=== PATIENT | female | born 1950 | race Caucasian/White ===

== ENCOUNTER 2017-12-05 09:46 | Emergency (ER) | payer BC, OTHER ==
--- NOTE | 2017-12-05 11:02 | EDPHY ---
H & P Time Seen by Provider: 12/05/17 11:01 HPI/ROS: Chief complaint. Abdominal pain HPI. 67-year-old female presents emergency department with abdominal pain since last night. It comes and goes. It seems to be worse with lying down and better with standing. It has mid abdominal and she describes it as discomfort. No radiation to back. It is on both sides. No nausea vomiting or diarrhea. No constipation. No urinary symptoms. No previous abdominal surgeries other than a ventral hernia repair many years ago. No fever. No chest discomfort no shortness of breath. ROS Constitutional. no fever/chills, no weakness Eyes. no problems with vision ENT. no sore throat, no nasal drainage Cardiovascular. no chest pain Respiratory. no shortness of breath, no cough Abdominal. Mid abdominal pain without nausea vomiting or diarrhea . no problems urinating MS. no calf pain/swelling, no neck/back pain, no joint pain Skin. no rash Lymph. no swollen glands Neuro. 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 Sleep apnea and pre diabetes Social History: , nonsmoker, no alcohol Smoking Status: Never smoked Physical Exam: General Appearance: Alert pleasant well-developed female mild distress vital signs are stable Eyes: Pupils equal and round no pallor or injection. ENT, Mouth: Mucous membranes are moist. Respiratory: There are no retractions, lungs are clear to auscultation. Cardiovascular: Regular rate and rhythm. Gastrointestinal: Abdomen is soft and nontender, no masses, bowel sounds normal. She has no tenderness now. Neurological: Awake and alert, sensory and motor exams grossly normal. Skin: Warm and dry, no rashes. Musculoskeletal: Neck is supple nontender. Extremities symmetrical, full range of motion. Psychiatric: Patient is oriented X 3, there is no agitation. Constitutional: Initial Vital Signs Temperature (C) 36.6 C 12/05/17 09:49 Heart Rate 80 12/05/17 09:49 Respiratory Rate 18 12/05/17 09:49 Blood Pressure 107/60 12/05/17 09:49 O2 Sat (%) 97 12/05/17 09:49 O2 Delivery Mode Room Air Allergies/Adverse Reactions: Penicillins Allergy (Unknown, Verified 12/05/17 09:54) as kid Home Medications: Medication Instructions Recorded Alendronate Sodium [Fosamax 70 MG 70 mg PO 12/05/17 (*)] Atenolol [Tenormin 25 mg (*)] 25 mg PO 12/05/17 Atorvastatin Calcium [Lipitor 40 40 mg PO 12/05/17 mg (*)] Cevimeline HCl [Evoxac] 30 mg PO TID 12/05/17 Levothyroxine [Synthroid 50 mcg 50 mcg PO DAILY06 12/05/17 (*)] Losartan Potassium [Cozaar 25 mg 25 mg PO 12/05/17 (*)] Mycophenolate Mofetil [Cellcept] 500 mg PO 12/05/17 NIFEdipine [Procardia Xl] 30 mg PO 12/05/17 Nitroglycerin [Nitro-Bid 2% Tube 1 inch TOP Q6 12/05/17 (*)] Nortriptyline HCl [Pamelor 10 mg 20 mg PO HS 12/05/17 (*)] Travoprost Z 0.004% [Travatan Z 5 ml OP 12/05/17 0.004% (*)] Venlafaxine Xr [Effexor Xr 37.5MG 37.5 mg PO 12/05/17 (*)] Warfarin Sodium [Coumadin 5MG (*)] 5 mg PO DAILY16 12/05/17 cycloSPORINE 0.05% [Restasis Opht 1 drop EACHEYE BID 12/05/17 Drops(*)] predniSONE 5 mg PO 12/05/17 Medical Decision Making - Diagnostics Imaging Results: CT abdomen pelvis with IV contrast reviewed by me and discussed with Dr. Zayas significant for constipation. The appendix is not well visualized secondary to the constipation but there is no secondary signs of appendicitis Procedures: IV normal saline ED Course/Re-evaluation: Re-evaluation at 1:50 p.m.. Patient and I discussed imaging and lab results. We discussed treatment plan including criteria for return importance of follow- up and further evaluation. She expresses understanding and agreement Patient has no pain now Differential Diagnosis: I considered appendicitis, diverticulitis, abdominal aortic aneurysm, urinary tract infection as possible etiologies of intermittent abdominal pain. - Data Points Laboratory Results: Laboratory Results 12/05/17 11:00 12/05/17 11:00 12/05/17 12/05/17 12/05/17 12:45 11:00 11:00 WBC 3.01 10^3/uL L 10^3/uL (3.80-9.50) RBC 4.02 10^6/uL L 10^6/uL (4.18-5.33) Hgb 12.3 g/dL L g/dL (12.6-16.3) Hct 37.3 % L % (38.0-47.0) MCV 92.8 fL fL (81.5-99.8) MCH 30.6 pg pg (27.9-34.1) MCHC 33.0 g/dL g/dL (32.4-36.7) RDW 13.0 % % (11.5-15.2) Plt Count 268 10^3/uL 10^3/uL (150-400) MPV 9.5 fL fL (8.7-11.7) Neut % (Auto) 82.8 % H % (39.3-74.2) Lymph % (Auto) 5.3 % L % (15.0-45.0) [place] % (Auto) 11.0 % % (4.5-13.0) Eos % (Auto) 0.3 % L % (0.6-7.6) Baso % (Auto) 0.3 % % (0.3-1.7) Nucleat RBC Rel Count 0.0 % % (0.0-0.2) Absolute Neuts (auto) 2.49 10^3/uL 10^3/uL (1.70-6.50) Absolute Lymphs (auto) 0.16 10^3/uL L 10^3/uL (1.00-3.00) Absolute Monos (auto) 0.33 10^3/uL 10^3/uL (0.30-0.80) Absolute Eos (auto) 0.01 10^3/uL L 10^3/uL (0.03-0.40) Absolute Basos (auto) 0.01 10^3/uL L 10^3/uL (0.02-0.10) Absolute Nucleated RBC 0.00 10^3/uL 10^3/uL (0-0.01) Immature Gran % 0.3 % % (0.0-1.1) Immature Gran # 0.01 10^3/uL 10^3/uL (0.00-0.10) RBC/WBC/PLT Morphology TNP Platelet Estimate TNP Sodium 134 mEq/L L mEq/L (135-145) Potassium 4.7 mEq/L mEq/L (3.3-5.0) Chloride 100 mEq/L mEq/L (97-110) Carbon Dioxide 25 mEq/l mEq/l (22-31) Anion Gap 9 mEq/L mEq/L (8-16) BUN 18 mg/dL mg/dL (7-23) Creatinine 0.8 mg/dL mg/dL (0.6-1.0) Estimated GFR > 60 Glucose 92 mg/dL mg/dL (70-100) Calcium 9.3 mg/dL mg/dL (8.5-10.4) Lipase 280 IU/L IU/L (23-300) Urine Color YELLOW Urine Appearance CLEAR Urine pH 6.0 (5.0-7.5) Ur Specific [place] 1.010 (1.002-1.030) Urine Protein NEGATIVE (NEGATIVE) Urine Ketones NEGATIVE (NEGATIVE) Urine Blood NEGATIVE (NEGATIVE) Urine Nitrate NEGATIVE (NEGATIVE) Urine Bilirubin NEGATIVE (NEGATIVE) Urine Urobilinogen NEGATIVE EU EU (0.2-1.0) Ur Leukocyte Esterase TRACE H (NEGATIVE) Urine RBC NONE SEEN /hpf /hpf (0-3) Urine WBC 1-3 /hpf /hpf (0-3) Ur Epithelial Cells TRACE /lpf /lpf (NONE-1+) Urine Mucus TRACE /lpf /lpf (NONE-1+) Urine Glucose NEGATIVE (NEGATIVE) Medications Given: Discontinued Medications Sodium Chloride (Ns) 1,000 mls @ 0 mls/hr IV EDNOW ONE; Wide Open PRN Reason: Protocol Stop: 12/05/17 12:30 Last Admin: 12/05/17 12:42 Dose: 1,000 mls Departure - Departure Disposition: Home, Routine, Self-Care Clinical Impression: Abdominal pain Qualifiers: Abdominal location: periumbilical Qualified Code(s): R10.33 - Periumbilical pain Condition: Good Instructions: Constipation (ED) Additional Instructions: Increased fluids including fruit and prune juice. Milk of magnesia. May also use docusate and bisacodyl that is available at the grocery store. Magnesium citrate in a green bottle is also available at the grocery store to help with constipation Return for worsening pain especially in the lower right quadrant of your abdomen , fever, vomiting. Recheck in 1-2 days if not improved Referrals: CHILO ALLEN [Other] - 1 day, if not improved
[2017-12-05] MEDS ORDERED: NS 1,000 ML IV ONE (12:29)
[2017-12-05 12:36] LABS: PLATELET COUNT 268 10^3/uL (150-400)
[2017-12-05] MEDS ORDERED: IOPAMIDOL (ISOVUE-300) 100 ML BTL ONE (13:05)
[2017-12-05 14:14] VITALS: BP 132/78
== END 2017-12-05 14:15 | disposition home or self-care (01) ==
DX: R10.33 Periumbilical pain (principal); E86.9 Volume depletion, unspecified; Z79.01 Long term (current) use of anticoagulants; Z85.3 Personal history of malignant neoplasm of breast; Z86.73 Personal history of transient ischemic attack (TIA), and cerebral infarction without residual deficits
CPT/HCPCS: Q9967